=== PATIENT | male | born 1995 | race Hispanic/Latino ===

== ENCOUNTER 2017-05-16 21:54 | Emergency (ER) | payer MEDICAID, OTHER ==
[2017-05-16] MEDS ORDERED: ACETAMINOPHEN 325 MG TAB ONE (22:25)
[2017-05-16 22:34] LABS: RAPID GROUP A STREP NEGATIVE (NEGATIVE)
== END 2017-05-16 23:11 | disposition home or self-care (01) ==
LOC: EDH 21:54
DX: J11.1 Influenza due to unidentified influenza virus with other respiratory manifestations (principal); Z90.49 Acquired absence of other specified parts of digestive tract
CPT/HCPCS: 87804; 87880

== ENCOUNTER 2019-10-08 11:33 | Emergency (ER) | payer BC, OTHER ==
[2019-10-08] MEDS ORDERED: KETOROLAC TROMETHAMINE 30MG/ML ONE (12:12)
[2019-10-08] MEDS ORDERED: ONDANSETRON HCL 4 MG/2 ML VIAL ONE (12:12)
[2019-10-08] MEDS ORDERED: SODIUM CHLORIDE 0.9% 1000ML 1,000 ML IV ONE (12:13)
== END 2019-10-08 13:34 | disposition home or self-care (01) ==
LOC: EDH 11:33
DX: R10.32 Left lower quadrant pain (principal); Z90.49 Acquired absence of other specified parts of digestive tract
CPT/HCPCS: 36415; 74176; 80048; 80076; 80305; 81003; 82550; 83690; 85025; 96374; 96375; 99284; J1885; J2405; J7030